=== PATIENT | male | born 1985 | race Caucasian/White ===

== ENCOUNTER 2018-12-12 12:12 | Emergency (ER) | payer BC ==
[~2018-12-12] VITALS: Ht 185.4 cm; Wt 198.3 kg
[2018-12-12 12:15] VITALS: Ht 185.4 cm; Wt 198.3 kg
[2018-12-12 12:46] LABS: BASOPHIL % 0.5 % (0-2); PLATELET COUNT 247 x10^3mcL (130-400); RED CELL DISTRIBUTION WIDTH 13.9 % (11.5-14.5)
[2018-12-12 12:54] LABS: CALCIUM 9.4 mg/dL (8.5-10.1); CARBON DIOXIDE 31.2 mmol/L (21-32); CHLORIDE SERUM 103 mmol/L (98-107); CREATININE SERUM 1.2 mg/dL (0.7-1.3); GFR1 > 60 mL/min; GLUCOSE SERUM 112 mg/dL (74-106); POTASSIUM SERUM 4.2 mmol/L (3.5-5.1); SODIUM SERUM 141 mmol/L (136-145)
[2018-12-12 12:59] LABS: ALBUMIN 4.3 g/dL (3.4-5.0); ALKALINE PHOSPHATASE 125 U/L (46-116); ALT/SGPT 41 U/L (16-63); AST/SGOT 22 U/L (15-37); BILIRUBIN TOTAL 0.69 mg/dL (0.20-1.00); TOTAL PROTEIN, SERUM 8.2 g/dL (6.4-8.2)
[2018-12-12 14:38] VITALS: BP 130/80
== END 2018-12-12 14:38 | disposition home or self-care (01) ==
LOC: ED 12:12
PROVIDERS: Emergency Medicine
DX: R07.89 Other chest pain (principal)
CPT/HCPCS: 36415; 85378; Q0092